=== PATIENT | female | born 1940 | race African-American/Black ===

== ENCOUNTER 2023-08-22 19:32 | Emergency (ER) | payer OTHER, MEDICARE ==
[~2023-08-22] VITALS: Ht 152.4 cm; Wt 66.7 kg
[2023-08-22 19:45] VITALS: BP_SYST 187; PULSE 74; RESP 19; TEMP 97.9; O2SAT 100
[2023-08-22] MEDS ORDERED: ACETAMINOPHEN 500 MG TABLET PO ONE (20:00)
[2023-08-22] MEDS ORDERED: IBUPROFEN 600 MG TABLET PO ONE (21:45)
[2023-08-22] MEDS ORDERED: BACITRACIN ZINC 15 GM TOPICAL OINTMENT TP ONE (21:45)
[2023-08-22] MEDS ORDERED: DICL20GE TP (21:53)
[2023-08-22] MEDS ORDERED: IBUP-1969 PO (21:53)
[2023-08-22] MEDS ORDERED: BACITRACIN 1 GM OINT TP ONE (22:16)
[2023-08-22 23:03] VITALS: BP_SYST 177; PULSE 56; RESP 16; TEMP 97.9; O2SAT 100
== END 2023-08-22 22:42 | disposition home or self-care (01) ==
LOC: EDSEX 19:32 → SED 19:32
DX: S80.02XA Contusion of left knee, initial encounter (principal); S09.90XA Unspecified injury of head, initial encounter; I10 Essential (primary) hypertension; Z88.8 Allergy status to other drugs, medicaments and biological substances; W01.198A Fall on same level from slipping, tripping and stumbling with subsequent striking against other object, initial encounter; Y93.89 Activity, other specified; Y92.89 Other specified places as the place of occurrence of the external cause; Y99.8 Other external cause status
CPT/HCPCS: 70450-TC; 73564; 76376; 99284